=== PATIENT | female | born 1945 | race Caucasian/White ===

== ENCOUNTER 2023-10-19 17:25 | Inpatient (IN) | payer BC, MEDICARE ==
[~2023-10-19] VITALS: Ht 154.9 cm; Wt 83.5 kg
[2023-10-19 18:25] LABS: BASOPHILS % 1.2 % (0.0-2.0); EOSINOPHILS % 4.8 % (0.0-5.0); HEMATOCRIT. 40.9 % (36.0-48.0); HEMOGLOBIN. 13.4 g/dL (12.0-16.0); LYMPHOCYTES % 27.5 % (20.0-50.0); MEAN CORPUSCULAR HEMOGLOBIN 29.4 pg (28.0-32.0); MEAN CORPUSCULAR HGB CONC 32.8 g/dL (31.0-37.0); MEAN CORPUSCULAR VOLUME 89.6 fL (81.0-99.0); MEAN PLATELET VOLUME 9.3 fl (7.4-10.4); MONOCYTES % 8.4 % (2.0-8.0); NEUTROPHILS % 58.1 % (40.0-76.0); PLATELET 293 x1000/uL (130-400); RED BLOOD CELL COUNT 4.57 mill/uL (4.2-5.4); RED CELL DISTRIBUTION WIDTH 13.8 % (11.6-14.6); WHITE BLOOD COUNT 6.6 x1000/uL (4.5-11.0)
[2023-10-19 18:39] LABS: ALANINE AMINOTRANSFERASE < 7 IU/L (10-49); ALBUMIN 3.8 g/dL (3.2-4.8); ASPARTATE AMINOTRANSFERASE 15 IU/L (<34); BILIRUBIN TOTAL 0.4 mg/dL (0.1-1.0); CALCIUM 9.5 mg/dL (8.7-10.4); CARBON DIOXIDE 30 mEq/L (21-32); CHLORIDE 105 mEq/L (98-107); CREATININE 0.8 mg/dL (0.6-1.0); GLUCOSE 96 mg/dL (70-105); POTASSIUM 3.8 mEq/L (3.5-5.1); PROTEIN TOTAL 7.2 g/dL (6.0-8.3); SODIUM 139 mEq/L (136-145); UREA NITROGEN BLOOD 16 mg/dL (9-23)
[2023-10-19] MEDS ORDERED: HEPARIN 25,000 UNITS PREMIX 250 ML IV SCH (19:30)
[2023-10-19] MEDS ORDERED: HEPARIN 5000 UNITS/ML VIAL IV NR (20:00)
[2023-10-19] MEDS ORDERED: MAGNESIUM/ALUMINUM HYDROXIDE/SIMETHICONE 30ML UDC PO PRN (21:30)
[2023-10-19] MEDS ORDERED: ZOLPIDEM TARTRATE 5MG TABLET PO PRN (21:30)
[2023-10-19] MEDS ORDERED: CLONIDINE 0.1MG TABLET PO PRN (21:30)
[2023-10-19] MEDS ORDERED: DIPHENHYDRAMINE 50MG/ML VIAL IV PRN (21:30)
[2023-10-19] MEDS ORDERED: ONDANSETRON HCL 4MG/2ML INJ IV PRN (21:30)
[2023-10-19] MEDS ORDERED: ACETAMINOPHEN 325MG TABLET PO PRN (21:30)
[2023-10-19] MEDS: SODIUM CHLORIDE 0.9% INJ 3ML FLUSH IVF SCH (22:23)
[2023-10-20] MEDS ORDERED: HEPARIN 5000 UNITS/ML VIAL IV PRN ×2 (02:30)
[2023-10-20] MEDS ORDERED: IOHEXOL-350 100 ML BOTTLE ONE (02:33)
[2023-10-20] MEDS ORDERED: ENOXAPARIN 80MG/0.8ML SYR SUBCUT NR (04:00)
[2023-10-20] MEDS: SODIUM CHLORIDE 0.9% INJ 3ML FLUSH IVF SCH ×3 (06:00→22:00)
[2023-10-20 10:20] LABS: INR 1.1; PROTHROMBIN TIME 11.4 sec (9.6-11.0)
[2023-10-20 12:00] VITALS: BP 137/87; PULSE 78; RESP 18; TEMP 97.9
[2023-10-20] MEDS ORDERED: QUET25TA36 PO (12:12)
[2023-10-20] MEDS ORDERED: FURO-152 PO (12:12)
[2023-10-20] MEDS ORDERED: CARB-33 MT (12:12)
[2023-10-20] MEDS ORDERED: SERT-422 PO (12:12)
[2023-10-20] MEDS ORDERED: METO-396 PO (12:12)
[2023-10-20] MEDS ORDERED: IPRA4AER INH (12:12)
[2023-10-20] MEDS ORDERED: SPIR25TA6 PO (12:12)
[2023-10-20] MEDS ORDERED: PRAM0.5T11 MT (12:12)
[2023-10-20] MEDS ORDERED: OMEP40CA20 PO (12:12)
[2023-10-20 13:22] VITALS: BP 138/87; PULSE 78; RESP 18; TEMP 97.9
[2023-10-20] MEDS: METOPROLOL SUCCINATE 50MG ER TABLET PO SCH (13:57)
[2023-10-20] MEDS ORDERED: PRAMIPEXOLE DI-HCL 0.25MG TABLET PO SCH ×2 (14:00→21:00)
[2023-10-20] MEDS ORDERED: CARBIDOPA/LEVODOPA 25/250MG TABLET PO SCH (14:30)
[2023-10-20 16:00] VITALS: BP 142/81; PULSE 63; RESP 18; TEMP 97.9
[2023-10-20] MEDS: ENOXAPARIN 80MG/0.8ML SYR SUBCUT SCH (17:28)
[2023-10-20] MEDS: CARBIDOPA/LEVODOPA 25/250MG TABLET PO SCH (17:28)
[2023-10-20 20:00] VITALS: BP 109/57; PULSE 62; RESP 22; TEMP 97.3
[2023-10-21] VITALS: BP 114/60; PULSE 66; RESP 17; TEMP 97.3
[2023-10-21 04:00] VITALS: BP 97/58; PULSE 62; RESP 18; TEMP 98.1
[2023-10-21] MEDS: ENOXAPARIN 80MG/0.8ML SYR SUBCUT SCH (05:08)
[2023-10-21] MEDS: SODIUM CHLORIDE 0.9% INJ 3ML FLUSH IVF SCH ×2 (06:00→13:08)
[2023-10-21 08:00] VITALS: BP 122/69; PULSE 61; RESP 20; TEMP 97.8
[2023-10-21] MEDS: METOPROLOL SUCCINATE 50MG ER TABLET PO SCH (08:52)
[2023-10-21] MEDS: CARBIDOPA/LEVODOPA 25/250MG TABLET PO SCH (08:52)
[2023-10-21] MEDS ORDERED: SERTRALINE HCL 50MG TABLET PO SCH (09:00)
[2023-10-21] MEDS ORDERED: CARBIDOPA/LEVODOPA 25/250MG TABLET PO SCH (09:00)
[2023-10-21] MEDS ORDERED: METOPROLOL TARTRATE 25MG TABLET PO SCH (09:00)
[2023-10-21] MEDS ORDERED: QUETIAPINE FUMARATE 25MG TABLET PO SCH (09:00)
[2023-10-21 12:00] VITALS: BP 127/50; PULSE 73; RESP 20; TEMP 97.3; TEMP 97.8
[2023-10-21 12:40] VITALS: BP 127/50; PULSE 73; TEMP 97.3; O2SAT 94
[2023-10-21] MEDS ORDERED: APIXABAN 5 MG TABLET PO NR (14:00)
[2023-10-22] MEDS ORDERED: ENOXAPARIN 80MG/0.8ML SYR SUBCUT SCH (06:00)
== END 2023-10-21 14:25 | disposition home or self-care (01) | DRG 299 ==
LOC: ER 17:33 → EDBEDREQ 18:16 → MICUSO 20:05 → EDBEDREQTM 20:08 → EDBEDREQSVC 20:08 → EDBEDREQ 20:08 → 8WST 10-20 11:05
PROVIDERS: ADMIT Internal Medicine; ATTEND Internal Medicine
DX: I82.401 Acute embolism and thrombosis of unspecified deep veins of right lower extremity (principal); I26.99 Other pulmonary embolism without acute cor pulmonale; I11.0 Hypertensive heart disease with heart failure; J44.9 Chronic obstructive pulmonary disease, unspecified; E66.9 Obesity, unspecified; G20.A1 Parkinson's disease without dyskinesia, without mention of fluctuations; I50.9 Heart failure, unspecified; Z86.16 Personal history of COVID-19; Z90.710 Acquired absence of both cervix and uterus; Z79.899 Other long term (current) drug therapy; Z68.34 Body mass index [BMI] 34.0-34.9, adult
CPT/HCPCS: 36415; 71275; 80053; 85025; 93306; 93970; 99285; J1644; J1650; Q9967